=== PATIENT | female | born 1995 | race Caucasian/White ===

== ENCOUNTER 2017-01-28 15:38 | Emergency (ER) | payer OTHER, BC ==
[~2017-01-28] VITALS: Ht 170.2 cm; Wt 68.0 kg
[~2017-01-28 15:38] MED LIST: HYDR-79 PO; PRED20TA PO
[2017-01-28] MEDS ORDERED: IV NORMAL SALINE 1,000ML 1,000 ML IV ONE (16:30)
[2017-01-28 16:33] LABS: BASO % 1 % (0-3); EOS # 0.1 x10^3/uL (0.0-0.7); EOS % 1 % (0-3); HEMATOCRIT 41.3 % (36.0-47.0); HEMOGLOBIN 14.2 g/dL (12.0-15.5); LYMPH # 2.7 x10^3/uL (1.0-4.8); LYMPH % 35 % (24-48); MEAN CORPUSCULAR HEMOGLOBIN 30 pg (25-35); MEAN CORPUSCULAR HGB CONC 34 g/dL (31-37); MEAN CORPUSCULAR VOLUME 87 fL (79-100); MONO # 0.5 x10^3/uL (0.0-1.1); MONO % 7 % (0-9); NEUT # 4.3 x10^3uL (1.8-7.7); NEUT % 57 % (31-73); PLATELET COUNT 203 x10^3/uL (140-400); RED BLOOD COUNT 4.75 x10^6/uL (3.50-5.40); RED CELL DISTRIBUTION WIDTH 13.3 % (11.5-14.5); WHITE BLOOD COUNT 7.6 x10^3/uL (4.0-11.0)
[2017-01-28 16:38] LABS: ALBUMIN 4.2 g/dL (3.4-5.0); ALBUMIN/GLOBULIN RATIO 1.6 (1.0-1.7); CALCIUM 8.9 mg/dL (8.5-10.1); CREATININE 0.9 mg/dL (0.6-1.0); GFR 80.7; MAGNESIUM 1.9 mg/dL (1.8-2.4); POTASSIUM 3.5 mmol/L (3.5-5.1); TOTAL BILIRUBIN 0.4 mg/dL (0.2-1.0); TOTAL PROTEIN 6.9 g/dL (6.4-8.2)
--- NOTE | 2017-01-28 17:45 | RAD ---
EXAM: US PELVIS W/TV HISTORY: 21-year-old female with pelvic pain for a couple of weeks. COMPARISON: None. TECHNIQUE: Transverse and longitudinal sonography of the pelvis is performed utilizing transabdominal and transvaginal transducers. FINDINGS: Transabdominal imaging demonstrates an anteflexed uterus measuring 6.9 x 3.9 x 4.9 cm. The left ovary is visualized measuring 2.4 x 1.1 x 2.7 cm. Right ovary visualized measuring 1.8 x 1.6 x 4.1 cm. Blood flow is documented in the right ovary. Endometrial thickness measures 6 mm. Transvaginal imaging demonstrates a small amount of simple appearing free fluid present in the cul-de-sac, likely physiologic in this premenopausal patient. A couple nabothian cysts are seen within the region of the cervix. A linear hyperechoic structure with posterior shadowing is present along the endometrium, consistent with an IUD. Endometrial thickness measured at 5 mm. Uterus measures 8.8 x 3.6 x 4.7 cm. The left ovary is visualized measuring 2.8 x 1.6 x 1.9 cm, with normal-appearing follicles. Blood flow documented within the left ovary. Right ovary is visualized measuring 3.2 x 1.7 x 3.1 cm, with normal follicles. Blood flow is documented within the right ovary. No adnexal mass is seen. IMPRESSION: 1. Normal premenopausal pelvic ultrasound. 2. IUD in place within the uterus. Normal endometrial thickness. 3. Both ovaries visualized with blood flow documented. Physiologic appearing fluid present. Electronically signed by: Aniya Ferro MD (01/28/2017 5:42 PM) [facility]
--- NOTE | 2017-01-28 17:52 | PHYS DOC ---
Past History Past Medical History: No Pertinent History, Other Past Surgical History: Other Smoking: Non-smoker Alcohol Use: None Drug Use: None Adult General Chief Complaint Chief Complaint: ABDOMINAL PAIN HPI HPI Patient is a 21 year old F who presents with mild to moderate lower bilateral abdominal pain associated with occasional nausea. She does have an IUD and her knowledge has had no problems with this. She does seem to have monthly periods which consist of brownish discharge. Her abdominal pain started about 2 weeks ago and she began having brownish discharge today. She denies radiating pain. She denies exacerbating or alleviating factors. She feels that she is urinating and having bowel movements without difficulty. She denies any other associated symptoms. Review of Systems Review of Systems Constitutional: Denies fever or chills [] Eyes: Denies change in visual acuity, redness, or eye pain [] HENT: Denies nasal congestion or sore throat [] Respiratory: Denies cough or shortness of breath [] Cardiovascular: No additional information not addressed in HPI [] GI: Negative except history of present illness : Denies dysuria or hematuria [] Musculoskeletal: Denies back pain or joint pain [] Integument: Denies rash or skin lesions [] Neurologic: Denies headache, focal weakness or sensory changes [] Endocrine: Denies polyuria or polydipsia [] All other systems were reviewed and found to be within normal limits, except as documented in this note. Family History Family History Noncontributory Current Medications Current Medications Current Medications Medications (Trade) Dose Ordered Sig/Richelle Start Time Stop Time Status Last Admin Dose Admin Sodium Chloride 1,000 ml @ 1,000 mls/hr 1X ONCE 01/28/17 16:30 01/28/17 17:29 DC 01/28/17 16:30 1,000 MLS/HR Allergies Allergies Allergies Coded Allergies Type Severity Reaction Last Updated Verified No Known Drug Allergies 11/29/15 No Physical Exam Physical Exam Constitutional: Well developed, well nourished, no acute distress, non-toxic appearance. [] HENT: Normocephalic, atraumatic, bilateral external ears normal, oropharynx moist, no oral exudates, nose normal. [] Eyes: EOMI, conjunctiva normal, no discharge. [] Neck: Normal range of motion, no tenderness, supple, no stridor. [] Cardiovascular:Heart rate regular rhythm, no murmur [] Lungs & Thorax: Bilateral breath sounds clear to auscultation [] Abdomen: Bowel sounds normal, soft, no masses, no pulsatile masses. Mild bilateral lower abdominal pain Skin: Warm, dry, no erythema, no rash. [] Back: No tenderness, no CVA tenderness. [] Extremities: No tenderness, no cyanosis, no clubbing, ROM intact, no edema. [] Neurologic: Alert and oriented X 3, normal motor function, normal sensory function, no focal deficits noted. [] Psychologic: Affect normal, judgement normal, mood normal. [] Current Patient Data Vital Signs Vital Signs Date Time Temp Pulse Resp B/P (MAP) Pulse Ox O2 Delivery O2 Flow Rate FiO2 01/28/17 15:38 98.5 91 18 98 Room Air Lab Results Laboratory Tests Test 01/28/17 16:00 01/28/17 17:13 White Blood Count 7.6 x10^3/uL (4.0-11.0) Red Blood Count 4.75 x10^6/uL (3.50-5.40) Hemoglobin 14.2 g/dL (12.0-15.5) Hematocrit 41.3 % (36.0-47.0) Mean Corpuscular Volume 87 fL (79-100) Mean Corpuscular Hemoglobin 30 pg (25-35) Mean Corpuscular Hemoglobin Concent 34 g/dL (31-37) Red Cell Distribution Width 13.3 % (11.5-14.5) Platelet Count 203 x10^3/uL (140-400) Neutrophils (%) (Auto) 57 % (31-73) Lymphocytes (%) (Auto) 35 % (24-48) Monocytes (%) (Auto) 7 % (0-9) Eosinophils (%) (Auto) 1 % (0-3) Basophils (%) (Auto) 1 % (0-3) Neutrophils # (Auto) 4.3 x10^3uL (1.8-7.7) Lymphocytes # (Auto) 2.7 x10^3/uL (1.0-4.8) Monocytes # (Auto) 0.5 x10^3/uL (0.0-1.1) Eosinophils # (Auto) 0.1 x10^3/uL (0.0-0.7) Basophils # (Auto) 0.0 x10^3/uL (0.0-0.2) Sodium Level 143 mmol/L (136-145) Potassium Level 3.5 mmol/L (3.5-5.1) Chloride Level 105 mmol/L (98-107) Carbon Dioxide Level 28 mmol/L (21-32) Anion Gap 10 (6-14) Blood Urea Nitrogen 12 mg/dL (7-20) Creatinine 0.9 mg/dL (0.6-1.0) Estimated GFR (Cockcroft-Gault) 80.7 BUN/Creatinine Ratio 13 (6-20) Glucose Level 91 mg/dL (70-99) Calcium Level 8.9 mg/dL (8.5-10.1) Magnesium Level 1.9 mg/dL (1.8-2.4) Total Bilirubin 0.4 mg/dL (0.2-1.0) Aspartate Amino Transferase (AST) 14 U/L (15-37) L Alanine Aminotransferase (ALT) 19 U/L (14-59) Alkaline Phosphatase 68 U/L (46-116) Total Protein 6.9 g/dL (6.4-8.2) Albumin 4.2 g/dL (3.4-5.0) Albumin/Globulin Ratio 1.6 (1.0-1.7) POC Urine HCG, Qualitative hcg negative (Negative) EKG EKG [] Radiology/Procedures Radiology/Procedures Pelvic ultrasound Impressions: Please refer to radiology documentation for specifics. No acute disease Course & Med Decision Making Course & Med Decision Making Pertinent Labs and Imaging studies reviewed. (See chart for details) [] Dragon Disclaimer Dragon Disclaimer This electronic medical record was generated, in whole or in part, using a voice recognition dictation system. Departure Departure: Impression: Primary Impression: Abdominal pain Disposition: 01 HOME, SELF-CARE Condition: STABLE Referrals: JIMMY GARCIA MD (PCP) Patient Instructions: Abdominal Pain Additional Instructions: Anali was seen in the emergency department for abdominal pain. No emergency medical condition was found on history or physical exam. She did have normal labs and normal ultrasound. Her pain was most consistent with ovarian cyst related to ovulation, however this is not a definitive diagnosis. She was advised to follow-up with her primary care doctor in the next 5-7 days for further management. Problem Qualifiers Primary Impression: Abdominal pain Abdominal location: lower abdomen, unspecified Qualified Codes: R10.30 - Lower abdominal pain, unspecified RENA ACOSTA MD Jan 28, 2017 17:52
[2017-01-28 18:00] VITALS: BP 130/50
== END 2017-01-28 18:11 | disposition home or self-care (01) ==
LOC: ER 15:38
DX: R10.31 Right lower quadrant pain (principal); R10.32 Left lower quadrant pain; R11.0 Nausea
CPT/HCPCS: 36415; 76830; 76856; 80053; 81025; 83735; 85025; 96360; 99285-25; J7030